=== PATIENT | female | born 1945 | race Caucasian/White ===

== ENCOUNTER 2016-12-22 13:31 | Observation (INO) | payer MEDICARE, BC ==
--- NOTE | ~2016-12-22 | MR122 ---
[facility] A Service [facility] RADIOLOGY TEXT RESULTS PATIENT: GM HERMOSILLO LOCATION: [place] [address] : [birth year] UNIT #: [id number] AGE: [address]: Sudeep Will MD SEX: F ORDER DR: [id number] [facility] [address] [place], [place] [address] [id number] I MR#: [id number] Acc #: [id number] NAME: GM HERMOSILLO : 1945 SEX: F STUDY DATE/TIME: 12/23/2016 12:10 UNIT: [facility] PCU ROOM: [facility] STUDY DESCRIPTION: MR MRA Head Wo Contrast Attending Physician: Sudeep Will M.D. Ordering Physician: Sudeep Will M.D. Primary Care Physician: Christina Daly M.D. MRI CENTER REPORT This report is preliminary unless electronic signature is present. EXAM MRA of the brain without contrast INDICATIONS Dizziness while cutting grass, syncope. Symptoms began yesterday. TECHNIQUE 3-D fboq-xk-epyvqi acquisition was used to generate angiographic images of the brain. FINDINGS The distal vertebral arteries, basilar artery and posterior cerebral arteries are normal in appearance. The distal internal carotid arteries, middle cerebral arteries and anterior cerebral arteries are normal in appearance. Multiplanar reformatted images are available. There are no aneurysms. IMPRESSION Normal MRA of the brain. Dictated by... Luis Ellington M.D. THIS IS AN ELECTRONICALLY VERIFIED REPORT Luis Ellington M.D. at 12/24/2016 7:27 AM FEL/herminia TD: 12/23/2016 22:11 JOB #: [id number] MRI CENTER REPORT [facility] A Service [facility] RADIOLOGY TEXT RESULTS PATIENT: GM HERMOSILLO LOCATION: [place] [address] : [birth year] UNIT #: [id number] AGE: [address]: Sudeep Will MD SEX: F ORDER DR: Page 1 of 1 COPY
--- NOTE | ~2016-12-22 | MR18 ---
[facility] A Service [facility] RADIOLOGY TEXT RESULTS PATIENT: GM HERMOSILLO LOCATION: [facility] : 43 UNIT #: [id number] AGE: [address]: Sudeep Will MD SEX: F ORDER DR: [id number] [facility] [address] [place], [place] [address] [id number] I MR#: [id number] Acc #: [id number] NAME: GM HERMOSILLO : 1945 SEX: F STUDY DATE/TIME: 12/23/2016 12:41 UNIT: [facility] PCU ROOM: [facility] STUDY DESCRIPTION: MR Brain Wo Contrast Attending Physician: Sudeep Will M.D. Ordering Physician: Sudeep Will M.D. Primary Care Physician: Christina Daly M.D. MRI CENTER REPORT This report is preliminary unless electronic signature is present. EXAM MRI of the brain without contrast INDICATIONS Dizziness starting yesterday when cutting grass. COMPARISON CT scan of the brain from 07/29/10. TECHNIQUE Sagittal T1-weighted images and axial T1, T2, FLAIR and diffusion images were obtained. FINDINGS Ventricles and subarachnoid spaces are normal. There are extensive areas of increased signal intensity in the white matter on the FLAIR series consistent with small vessel ischemic changes. These are primarily periventricular, with a few subcortical areas as well. There is no evidence of restricted diffusion. Pituitary gland and foramen magnum region are normal. There are no masses or extraaxial fluid collections or hemorrhage. IMPRESSION 1. No acute ischemic changes or recent ischemic changes. 2. Small vessel ischemic changes in the periventricular white matter and subcortical white matter. 3. Otherwise, normal. Dictated by... Luis Ellington M.D. [facility] A Service [facility] RADIOLOGY TEXT RESULTS PATIENT: GM HERMOSILLO LOCATION: [facility] : 43 UNIT #: [id number] AGE: [address]: Sudeep Will MD SEX: F ORDER DR: THIS IS AN ELECTRONICALLY VERIFIED REPORT Luis Ellington M.D. at 12/24/2016 7:27 AM MEGHNA/herminia TD: 12/23/2016 22:14 JOB #: [id number] MRI CENTER REPORT Page 1 of 1 COPY
--- NOTE | ~2016-12-22 | CR72 ---
[facility] A Service of [facility] RADIOLOGY TEXT RESULTS PATIENT: GM HERMOSILLO LOCATION: [facility] 341- : 43 UNIT #: [id number] AGE: [address]: Sudeep Will MD SEX: F ORDER DR: [id number] [facility] [address] [place], [place] [address] [id number] I MR#: [id number] Acc #: [id number] NAME: GM HERMOSILLO. : 1945 SEX: F STUDY DATE/TIME: 12/22/2016 14:25 UNIT: [address] ROOM: [facility] STUDY DESCRIPTION: CR Chest Single View Portable Attending Physician: Marek Huitron M.D. Ordering Physician: Quique Ortiz D.O. Primary Care Physician: Christina Daly M.D. MEDICAL IMAGING REPORT This report is preliminary unless electronic signature is present EXAM Portable chest HISTORY Syncopal episode while working in the yard today with shortness of air. COMPARISON STUDIES 11/12/2015. FINDINGS AP portable view of the chest is obtained. The heart size and vascularity are normal and the lungs are clear, except for a calcified left lung granuloma. The bones are unremarkable. IMPRESSION No active disease. Dictated by... Luis Ellington M.D. THIS IS AN ELECTRONICALLY VERIFIED REPORT Luis Ellington M.D. at 12/23/2016 7:03 AM FEL/pcl TD: 12/22/2016 22:45 JOB #: [id number] MEDICAL IMAGING REPORT Page 1 of 1 COPY
--- NOTE | ~2016-12-22 | EKG ---
PATIENT: GM HERMOSILLO UNIT #: [id number] Ventricular Rate: 71 BPM Atrial Rate: 71 BPM P-R Interval: 146 ms QRS Duration: 76 ms Q-T Interval: 378 ms QTC Calculation(Bezet): 410 ms P [place]: 42 degrees Calculated R [place]: -19 degrees Calculated T [place]: 41 degrees Diagnosis Line: Sinus rhythm with Premature atrial complexes Diagnosis Line: Otherwise normal ECG Diagnosis Line: When compared with ECG of 12-NOV-2015 07:43, Diagnosis Line: Premature atrial complexes are now Present Diagnosis Line: Confirmed by YULIA PRIEST MD ([id number]) on Diagnosis Line: 12/23/2016 10:03:36 PM INTERPRETING MD: CAREN
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
--- NOTE | ~2016-12-22 | MR134 ---
[facility] A Service of [facility] RADIOLOGY TEXT RESULTS PATIENT: GM HERMOSILLO LOCATION: [facility] 341-01 : 43 UNIT #: [id number] AGE: [address]: Sudeep Will MD SEX: F ORDER DR: [id number] [facility] [address] [place], [place] [address] [id number] I MR#: [id number] Acc #: [id number] NAME: GM HERMOSILLO : 1945 SEX: F STUDY DATE/TIME: 12/23/2016 13:01 UNIT: [address] ROOM: [facility] STUDY DESCRIPTION: MR MRA Neck Wo Contrast Attending Physician: Sudeep Will M.D. Ordering Physician: Sudeep Will M.D. Primary Care Physician: Christina Daly M.D. MRI CENTER REPORT This report is preliminary unless electronic signature is present. EXAM MRA of the neck without contrast INDICATIONS Dizziness starting yesterday. TECHNIQUE 2-D and 3-D ukni-si-svaisc acquisition was used to generate angiographic images of the neck. FINDINGS The vertebral arteries arise from the subclavian arteries and they are normal in size and appearance. The common carotid arteries, carotid bifurcations and internal carotid arteries are normal in appearance. IMPRESSION Normal MRA of the neck. Dictated by... Luis Ellington M.D. THIS IS AN ELECTRONICALLY VERIFIED REPORT Luis Ellington M.D. at 12/24/2016 7:27 AM MEGHNA/herminia TD: 12/23/2016 22:30 JOB #: [id number] MRI CENTER REPORT Page 1 of 1 COPY
--- NOTE | ~2016-12-22 | DS ---
Unit #: [id number] #: [id number] Patient: GM HERMOSILLO [id number] [address] [place], [place] [address] [id number] I MR#: [id number] NAME: GM HERMOSILLO. ROOM: 341 Age: 71 Sex: F Admission Date: 12/22/2016 : 1945 Discharge Date: 12/24/2016 Attending Physician: Sudeep Will M.D. Primary Care Physician: Christina Daly M.D. DISCHARGE SUMMARY REASON FOR ADMISSION Acute kidney injury, presyncopal episode, hyperkalemia. HISTORY Patient was admitted secondary to above. See H and P for complete details. Through her hospital course the patient received IV fluids. Her diuretics, as well as NSAID therapies were discontinued through her hospital course. Laboratory studies are routinely ascertained in regards to her acute kidney injury at the time of discharge. Her creatinine currently stands at 1.0. She does have a GFR of approximately 56, which is very age appropriate. The patient did have an initial abnormal urinalysis. Her urine culture result did not reveal any acute bacterial group. Routine laboratory studies also yielded a normal B12 level greater than 1500. Cardiac enzyme were also cycled, which were otherwise unremarkable. Patient also underwent an MRI and MRA of brain, as well as neck. Both were within normal range. There was no acute process noted. Patient also underwent 2D echocardiogram this hospital admission, which did reveal abnormal diastolic dysfunction, but normal ejection fraction of 55% to 60%. No other acute abnormalities were noted. At this point in time patient is clinically stable for discharge. she is ambulatory throughout the room. She had had no acute events while here. Her workup has been otherwise unremarkable. I have advised the patient moving forward that she should avoid all NSAID medications, as well as medication that may go through and/or processed by kidneys. At the time of discharge her MEGHAN inhibitor will also be discontinued secondary to elevated creatinine. Her blood pressure and systolic have remained between the 90s to low 100s. FINAL DISCHARGE DIAGNOSIS 1. Acute kidney injury now resolved. 2. Presyncopal episode/orthostatic hypotension on admission now resolved. 3. Hyperlipidemia. Unit #: [id number] #: [id number] Patient: GM HERMOSILLO 4. Hypertension, currently on no medications. 5. Osteoarthritis/rheumatoid arthritis. 6. Osteoporosis history. 7. Hypothyroidism. 8. Gastroesophageal reflux disease. DISCHARGE MEDICATIONS 1. Elavil 25 mg p.o. q.h.s. 2. Tylenol 650 mg p.o. q.6 p.r.n. 3. Prednisone 10 mg p.o. daily. Home medication: 4. Colace 100 mg p.o. b.i.d. 5. Zocor 20 mg p.o. q.h.s. 6. Zantac 150 mg p.o. q.a.m. 7. Fosamax 70 mg p.o. q. week. 8. Aspirin 81 mg daily. 9. Synthroid 75 mg p.o. daily. 10. B complex daily. DISCHARGE CONDITION Stable. DISCHARGE DISPOSITION Home. FOLLOWUP Followup with PCP in seven days for repeat BMP, as well as management of blood pressure. Dictated by... Efe Verduzco/adriana TD: 12/24/2016 11:54 JOB #: [id number] DISCHARGE SUMMARY Page 1 of 1 X Sudeep Will MD X DISCHARGE SUMMARY
[~2016-12-22 13:31] MED LIST: AMITRIPTYLINE H25 MG PO; AMITRYPTYLINE PO; ANTIVERT PO; ASPIRIN EC81 M1 PO; ASPIRIN PO; ASPIRIN81 M1 PO; AVAPRO PO; BACTRIM DS TABL1 TA1 PO; CECLOR PO; CERTAGEN PO; COLACE PO; LEVOTHROID88 MCG PO; LISINOPRIL20 MG PO; LORTAB 7.5-5001 TAB PO; MAXZIDE 37.5 M1 EACH PO; MAXZIDE 75/50 T1 TAB PO; METOPROLOL TAR25 MG PO; NEXIUM PO; NIFEDIPINE ER90 MG PO; PROCARDIA XL PO; SYNTHROID PO; SYNTHROID0.1 MG PO; SYNTHROID75 MCG PO; TRAMADOL HCL50 M2 PO; TRIAMTERENE-HC1 EACH PO; TRIAMTERENE-HCT1 TA6 PO; WATER PILL PO; ZANTAC150 M1 PO; ZESTRIL5 MG PO; ZOCOR PO; ZOCOR20 MG PO; ZOFRAN PO; ZYRTEC PO
[2016-12-22 14:44] LABS: BASOPHIL# 0.1 X10e3 (0-0.3); BASOPHIL% 0.4 % (0-2.5); EOSINOPHIL% 0.1 % (0.0-7.0); HEMOGLOBIN 12.5 gm/dL (12.0-16.0); INR 0.9; LYMPHOCYTE# 1.3 X10e3 (1.0-3.5); LYMPHOCYTE% 10.6 % (17.0-45.0); MEAN CELL VOLUME 90.1 FL (83-96); MEAN CORPUSCULAR HEMOGLOBIN 28.9 PG (28-34); MEAN CORPUSCULAR HGB CONC 32.1 g/dL (30-36); MEAN PLATELET VOLUME 8.4 FL (6.5-11.5); MONOCYTE# 0.6 X10e3 (0-1.0); MONOCYTE% 4.9 % (3.0-12.0); NEUTROPHIL# 10.1 X10e3 (1.5-7.1); PARTIAL THROMBOPLASTIN TIME 20.8 SECONDS (23.5-31.3); PLATELET COUNT 294 X10e3 (140-420); PROTHROMBIN TIME (PATIENT) 9.9 SECONDS (9.6-11.5); RED BLOOD COUNT 4.33 X10e (3.90-5.30); RED CELL DISTRIBUTION WIDTH 14.5 % (11.0-15.5); WHITE BLOOD COUNT 12.1 X10e3 (4.0-10.5)
[2016-12-22 14:47] LABS: DIFF IND NO
[2016-12-22 14:56] LABS: ALBUMIN SERUM 4.2 g/dL (3.5-5.0); BILIRUBIN, DIRECT 0.2 mg/dL (0.0-0.2); BILIRUBIN,INDIRECT 1.1 mg/dL (0.0-0.9); BILIRUBIN,TOTAL 1.3 mg/dL (0.2-2.0); BUN/CREATININE RATIO 22.1; CALCIUM SERUM 9.7 mg/dL (8.4-10.2); CREATININE SERUM 1.9 mg/dL (0.6-1.4); GLOM FILT RATE Estimated 25.7 mL/min (>60); MAGNESIUM 2.1 mg/dL (1.6-3.0); POTASSIUM 5.2 mmol/L (3.5-5.1); PROTEIN TOTAL SERUM 7.3 g/dL (6.0-8.3)
[2016-12-22 16:02] LABS: POC - CKMB 3.8 ng/mL (0.0-7.9); POC - TROPONIN <0.05 ng/mL (<=0.05)
[2016-12-22 16:24] LABS: POC - CKMB 4.9 ng/mL (0.0-7.9); POC - TROPONIN <0.05 ng/mL (<=0.05)
[2016-12-22] MEDS ORDERED: CIPROFLOXACIN500 M1 PO (18:10)
[2016-12-22] MEDS ORDERED: DOCUSATE SODIU100 MG PO (18:10)
[2016-12-22] MEDS ORDERED: B COMPLEX1 EACH PO (18:11)
[2016-12-22] MEDS ORDERED: AMITRIPTYLINE H25 MG PO (18:11)
[2016-12-22] MEDS ORDERED: ZANTAC150 M1 PO (18:11)
[2016-12-22] MEDS ORDERED: LOW DOSE ASPIRI81 M2 PO (18:12)
[2016-12-22] MEDS ORDERED: CLARITIN10 M3 PO (18:12)
[2016-12-22] MEDS ORDERED: ZOCOR20 MG PO (18:12)
[2016-12-22] MEDS ORDERED: MAXZIDE 37.5 M1 EACH PO (18:14)
[2016-12-22] MEDS ORDERED: ZESTRIL5 MG PO (18:15)
[2016-12-22] MEDS ORDERED: SYNTHROID75 MCG PO (18:15)
[2016-12-22] MEDS ORDERED: (NONE)500 MCG PO (18:17)
[2016-12-22] MEDS ORDERED: NAPROSYN500 MG PO (18:22)
[2016-12-22] MEDS ORDERED: FOSAMAX70 MG PO (20:26)
[2016-12-22 21:27] LABS: URINE APPEARANCE CLEAR; URINE BILIRUBIN NEG (NEG); URINE BLOOD NEG (NEG); URINE COLOR DK YELLOW; URINE GLUCOSE NEG (NEG); URINE KETONE TRACE (NEG); URINE LEUKOCYTE ESTERASE 3+ (NEG); URINE NITRATE NEG (NEG); URINE PROTEIN NEG (NEG); URINE SPECIFIC GRAVITY 1.016 (1.003-1.035); URINE UROBILINOGEN 0.2 MG/DL (NEG)
[2016-12-22 21:29] LABS: CULTURE INDICATED? YES; URBCS1 AUWI 0-2 /[HPF] (0-2); URINE BACTERIA AUWI NEG (NEGATIVE); URINE SQUAMOUS EPITHELIAL CELL NONE SEEN /[HPF]; UWBCS1 AUWI 25-50 (0-5)
[2016-12-22 21:33] LABS: URINE SOURCE CLEAN CATCH
[2016-12-23 06:20] LABS: HEMATOCRIT 35.3 % (35.0-45.0); HEMOGLOBIN 11.3 gm/dL (12.0-16.0); MEAN CELL VOLUME 89.2 FL (83-96); MEAN CORPUSCULAR HEMOGLOBIN 28.7 PG (28-34); MEAN CORPUSCULAR HGB CONC 32.1 g/dL (30-36); MEAN PLATELET VOLUME 8.4 FL (6.5-11.5); RED BLOOD COUNT 3.95 X10e (3.90-5.30); RED CELL DISTRIBUTION WIDTH 14.5 % (11.0-15.5)
[2016-12-23 07:31] LABS: BUN/CREATININE RATIO 27.85; CALCIUM SERUM 8.4 mg/dL (8.4-10.2); CREATININE SERUM 1.4 mg/dL (0.6-1.4); GLOM FILT RATE Estimated 37.2 mL/min (>60); POTASSIUM 5.1 mmol/L (3.5-5.1)
[2016-12-24 05:44] LABS: HEMATOCRIT 33.4 % (35.0-45.0); HEMOGLOBIN 10.6 gm/dL (12.0-16.0); MEAN CELL VOLUME 89.7 FL (83-96); MEAN CORPUSCULAR HEMOGLOBIN 28.5 PG (28-34); MEAN CORPUSCULAR HGB CONC 31.7 g/dL (30-36); MEAN PLATELET VOLUME 8.2 FL (6.5-11.5); RED BLOOD COUNT 3.72 X10e (3.90-5.30); RED CELL DISTRIBUTION WIDTH 14.7 % (11.0-15.5); WHITE BLOOD COUNT 11.5 X10e3 (4.0-10.5)
[2016-12-24 06:42] LABS: CALCIUM SERUM 8.1 mg/dL (8.4-10.2); GLOM FILT RATE Estimated 55.9 mL/min (>60); POTASSIUM 4.7 mmol/L (3.5-5.1)
[2016-12-24] MEDS ORDERED: PREDNISONE10 M1 PO (10:57)
[2016-12-24] MEDS ORDERED: ACETAMINOPHEN650 M1 PO (10:58)
== END 2016-12-24 13:17 | disposition home or self-care (01) ==
LOC: CED 13:31 → CEDOF 18:17 → CED 18:55 → CEDOF 20:05 → C3A PCU 20:05
PROVIDERS: Emergency Medicine; Family Medicine; Internal Medicine
DX: N17.9 Acute kidney failure, unspecified (principal); R55 Syncope and collapse; E78.5 Hyperlipidemia, unspecified; I10 Essential (primary) hypertension; E03.9 Hypothyroidism, unspecified; K21.9 Gastro-esophageal reflux disease without esophagitis; Z82.49 Family history of ischemic heart disease and other diseases of the circulatory system; M19.90 Unspecified osteoarthritis, unspecified site; M06.9 Rheumatoid arthritis, unspecified; M81.0 Age-related osteoporosis without current pathological fracture; Z88.2 Allergy status to sulfonamides; Z79.82 Long term (current) use of aspirin
CPT/HCPCS: 36415; 70544; 70547; 70551; 71010; 80048; 80061; 80076; 81003; 82550; 82553; 82607; 83036; 83735; 84443; 84484; 85025; 85027; 85610; 85730; 87086; 93005; 93306; 96372; 96374; 96376; 99285; G0378; J0696; J1650